=== PATIENT | male | born 1975 | race Two or more races ===

== ENCOUNTER 2019-03-25 12:49 | Emergency (ER) | payer SELFPAY ==
[~2019-03-25] VITALS: Ht 170.2 cm; Wt 63.6 kg
[2019-03-25 13:55] VITALS: BP 128/86
[2019-03-25] MEDS ORDERED: IBUPROFEN 200 MG TABLET. PO ONE (15:30)
--- NOTE | 2019-03-25 15:46 | RAD ---
SHOULDER 2+V RIGHT History: Shoulder injury. Pain. Technique: 3 views right shoulder. Comparison: None. Findings: Normal alignment of the glenohumeral and acromioclavicular joint. No fracture. Mild right acromioclavicular DJD. Impression: 1. No acute osseous abnormality. Electronically signed by: Aiden Tello DO (03/25/2019 3:43 PM) [id number]
[2019-03-25] MEDS ORDERED: IBUP-1007 PO (15:54)
--- NOTE | 2019-03-25 15:55 | PHYS DOC ---
Past Medical History Past Medical History: No Pertinent History Smoking Status: Current Every Day Smoker Alcohol Use: None Adult General Chief Complaint Chief Complaint: SHOULDER INJURY HPI HPI Patient is a 43 year old male who presents with is a sheet rock hitting her and approximate 2 weeks ago he went to brace she brought up above his head and heard a pop in his right shoulder. He states since then is been very sore is very limited range of motion and cannot work. States his pain a 7 out of 10. Review of Systems Review of Systems Musculoskeletal: Denies back pain. Right shoulder joint pain [] All other systems were reviewed and found to be within normal limits, except as documented in this note. Current Medications Current Medications Current Medications Medications (Trade) Dose Ordered Sig/[place] Start Time Stop Time Status Last Admin Dose Admin Ibuprofen (Motrin) 600 mg 1X ONCE 03/25/19 15:30 03/25/19 15:31 DC 03/25/19 15:54 600 MG Allergies Allergies Allergies Coded Allergies Type Severity Reaction Last Updated Verified No Known Drug Allergies 03/25/19 No Physical Exam Physical Exam Constitutional: Well developed, well nourished, no acute distress, non-toxic appearance. [] HENT: Normocephalic, atraumatic, bilateral external ears normal, oropharynx moist, no oral exudates, nose normal. [] Eyes: PERRLA, EOMI, conjunctiva normal, no discharge. [] Neck: Normal range of motion, no tenderness, supple, no stridor. [] Cardiovascular:Heart rate regular rhythm, no murmur [] Lungs & Thorax: Bilateral breath sounds clear to auscultation [] Abdomen: Bowel sounds normal, soft, no tenderness, no masses, no pulsatile masses. [] Skin: Warm, dry, no erythema, no rash. [] Back: No tenderness, no CVA tenderness. [] Extremities: Right anterior and posterior tenderness, no cyanosis, no clubbing, Right shoulder ROM not intact, no edema. [] Neurologic: Alert and oriented X 3, normal motor function, normal sensory function, no focal deficits noted. [] Psychologic: Affect normal, judgement normal, mood normal. [] Current Patient Data Vital Signs Vital Signs Date Time Temp Pulse Resp B/P (MAP) Pulse Ox O2 Delivery O2 Flow Rate FiO2 03/25/19 13:55 98.2 81 17 128/86 (100) 100 Room Air 98.2 EKG EKG [] Radiology/Procedures Radiology/Procedures [] Impressions: [facility] [address] [place] [address] IMAGING REPORT Signed PATIENT: MICKIE MITCHELLOUNT: [id number] : 1975 LOCATION: ER AGE: 43 SEX: M EXAM STATUS: REG ER ORD. PHYSICIAN: DONNA BRAUN APRN REASON: Shoulder injury, pain, limited rom PROCEDURE: SHOULDER 2+V RIGHT SHOULDER 2+V RIGHT History: Shoulder injury. Pain. Technique: 3 views right shoulder. Comparison: None. Findings: Normal alignment of the glenohumeral and acromioclavicular joint. No fracture. Mild right acromioclavicular DJD. Impression: 1. No acute osseous abnormality. Electronically signed by: Aiden Tello DO (03/25/2019 3:43 PM) [facility] DICTATED and SIGNED BY: AIDEN TELLO DO DATE: 03/25/19 1543 Course & Med Decision Making Course & Med Decision Making Pertinent Labs and Imaging studies reviewed. (See chart for details) Patient has very limited range of motion and cannot raise the arm fully above his head without pain cannot extend the arm at the elbow 90 outward without pain. No swelling or deformity to the shoulder. No redness or bruising. Patient denies any numbness or tingling. Radial pulses strong and present. Patient can wiggle all fingers and make a fist. Full strength in the extremity. No laxity in the joint. Skin pink warm and dry. Cap refill less than 3 seconds. Anterior and posterior shoulder tenderness. [] Dragon Disclaimer Dragon Disclaimer This electronic medical record was generated, in whole or in part, using a voice recognition dictation system. Departure Departure Impression: Primary Impression: Shoulder pain Disposition: 01 HOME, SELF-CARE Condition: STABLE Referrals: NO PCP (PCP) JACQUELINE RODRIGUEZ MD Patient Instructions: Arthritis, Degenerative-Brief, Shoulder Pain Additional Instructions: Follow up with orthopedics. Take Ibuprofen for pain. Rest the joint as much as possible. Scripts Ibuprofen (IBUPROFEN) 600 Mg Tablet 600 MG PO PRN Q6HRS PRN for INFLAMMATION, #20 TAB Prov: DONNA BRAUN APRN 03/25/19 Problem Qualifiers Primary Impression: Shoulder pain Chronicity: acute Laterality: right Qualified Codes: M25.511 - Pain in right shoulder DONNA BRAUN APRN Mar 25, 2019 15:55
== END 2019-03-25 16:18 | disposition home or self-care (01) ==
LOC: EDBD 12:49 → ER 12:49
DX: M25.511 Pain in right shoulder (principal); F17.200 Nicotine dependence, unspecified, uncomplicated
CPT/HCPCS: 73030; 99284